=== PATIENT | male | born 1955 | race Caucasian/White ===

== ENCOUNTER 2021-09-13 09:48 | Day surgery (SDC) | payer MEDICARE ==
[~2021-09-13 09:48] MED LIST: ASPIRIN 325 MG TAB PO PRN; SODIUM CHLORIDE 0.9% 1,000 ML in EMPTY BAG 1 BAG IV ONE
[2021-09-13 11:20] LABS: African American GFR (CKD) >90 (>60 ml/min/1.73 sqM); Anion Gap 10 mmol/L; Blood Urea Nitrogen 16 mg/dL (9-20); Calcium 8.6 mg/dL (8.4-10.2); Carbon Dioxide 25 mmol/L (22-30); Chloride 108 mmol/L (98-107); Glucose 105 mg/dL (74-99); Non-African American GFR(CKD) 84 (>60 ml/min/1.73 sqM); Potassium 3.9 mmol/L (3.5-5.1); Sodium 143 mmol/L (137-145)
[2021-09-13 11:42] LABS: Basophils # (A) 0.1 k/uL (0-0.2); Basophils % (A) 1 %; Eosinophils # (A) 0.2 k/uL (0-0.7); Eosinophils % (A) 3 %; HCT 46.7 % (39.0-53.0); HGB 15.8 gm/dL (13.0-17.5); Lymphocytes # (A) 2.2 k/uL (1.0-4.8); Lymphocytes % (A) 33 %; MCH 35.6 pg (25.0-35.0); MCHC 33.8 g/dL (31.0-37.0); MCV 105.3 fL (80.0-100.0); Macrocytosis Slight; Mean Platelet Volume 7.5; Monocytes # (A) 0.4 k/uL (0-1.0); Monocytes % (A) 6 %; Neutrophils # (A) 3.7 k/uL (1.3-7.7); Neutrophils % (A) 55 %; Platelet Count 230 k/uL (150-450); RBC 4.43 m/uL (4.30-5.90); WBC 6.6 k/uL (3.8-10.6)
[2021-09-13] MEDS ORDERED: SODIUM CHLORIDE 0.9% 500 ML 500 ML with niCARdipine 6.25 MG, NITROGLYCERIN-D5W PMX 0.05... IV ONE ×4 (12:00)
[2021-09-13] MEDS ORDERED: MIDAZOLAM 2 MG/2 ML VIAL IV ONE (12:09)
[2021-09-13] MEDS ORDERED: LIDOCAINE 1% INJ 10MG/ML (30 ML VIAL-PF) SQ ONE (12:11)
[2021-09-13] MEDS ORDERED: HEPARIN SODIUM 1,000 UN/ML (10ML VL) ONE (12:13)
[2021-09-13] MEDS: HEPARIN SODIUM 1,000 UN/ML (10ML VL) IV ONE ×2 (12:14→12:39)
[2021-09-13] MEDS ORDERED: niCARdipine 25 MG/10 ML VIAL ONE (12:39)
[2021-09-13] MEDS ORDERED: HYDROmorphone 1 MG/ML 1 ML SYRINGE IVP ONE (12:47)
[2021-09-13] MEDS ORDERED: NITROGLYCERIN 1000MCG/10ML SYRINGE INTRAARTER ONE (13:10)
[2021-09-13] MEDS: niCARdipine Syringe (1,000 mcg/10 mL) INTRAARTER ONE ×2 (13:11→13:22)
[2021-09-13] MEDS ORDERED: CLOPIDOGREL 75 MG TAB ONE (13:16)
[2021-09-13] MEDS ORDERED: CLOPIDOGREL 75 MG TAB PO ONE (13:18)
[2021-09-13] MEDS ORDERED: IOPAMIDOL-250 100ML BTL INTRAARTER ONE (13:34)
[2021-09-13] MEDS ORDERED: NALOXONE 0.4 MG/ML 1 ML VIAL IVP PRN (13:35)
--- NOTE | 2021-09-13 13:38 | P.PCN ---
Date of Procedure: 09/13/21 Operative Findings: PERCUTANEOUS PERIPHERAL INTERVENTION Performing physician Noe Rahman M.D. Procedure performed #1 atherectomy of the left SFA using the orbital atherectomy device #2 intravascular ultrasound of the left SFA #3 successful stenting of the left SFA #4 left lower extremity angiogram #5 intravascular ultrasound of the right external iliac artery #6 selective right common femoral artery angiogram Indication Limiting intermittent claudication in this 66-year-old gentleman who is known to have lower peripheral arterial disease confirmed by angiogram recently Approach Right common femoral artery Complications None Level of sedation Moderate with a sedation time of 82 minutes Procedure description After obtaining an informed consent the patient was brought to the cardiac laborer wrecking and salvaging. The right common femoral artery was cannulated using puncture technique under ultrasound guidance, the micropuncture wire passed easily and subsequently I placed a 6-Uzbek 55 cm sheath in the right common femoral artery. Subsequently I did selective left profunda using an 035 stiff Glidewire with a backup support of rim catheter. Subsequently the sheath was advanced over the wire and the catheter to the left common femoral artery. Anticoagulation was initiated using heparin with continuous ACT monitoring. Left lower eccentric angiogram was performed and revealed occluded left SFA from the ostium all the way to the Jesus canal with 3 vessel run off below the knee on the left side Crossing the CT of the left SFA was performed using 018 wire with a backup support of 018 catheter. Subsequently I approve that I was in the true lumen by injecting contrast through the catheter in the left popliteal. After that I did intravascular ultrasound which showed that I was in the true lumen and then I did atherectomy using the CSI device. Balloon angioplasty after that was performed using 5 mm choppered balloon. The following angiogram showed inadequate angiographic results and for that reason I placed 3 stents in the left SFA. Distally I placed 6.0 x 1 40 mm and in the mid I placed a 7.0 x 1 40 mm and in the very proximal I placed 7.0 x 40 mm. All these stents where zilver PTX stents. Postdilatation was performed using 6 mm balloon. The final angiogram showed good angiographic results. For the lesion in the left external iliac artery I did intravascular ultrasound which showed an area stenosis of only 55% and for that reason I did not stent the lesion. After that I did exchange my long sheath into short sheath using 035 stiff Glidewire and then I did selective right common femoral artery angiogram The procedure was completed without any complications Postprocedure management #1 dual antiplatelet therapy #2 aggressive cholesterol control #3 risk factors modification #4 follow-up with the patient
[2021-09-13] MEDS: SODIUM CHLORIDE 0.9% 1,000 ML in EMPTY BAG 1 BAG IV SCH ×2 (17:52→23:57)
[2021-09-13] MEDS ORDERED: HYDROmorphone 0.5 MG/0.5 ML SYRINGE IVP PRN (20:49)
[2021-09-14 05:57] VITALS: BP 133/74; PULSE 75; RESP 17; TEMP 98.3
--- NOTE | 2021-09-14 06:26 | IR ---
EXAMINATION TYPE: IR stent intravas non coronary DATE OF EXAM: 09/13/2021 CLINICAL HISTORY: Peripheral arterial disease. TECHNIQUE: Fluoroscopy. COMPARISON: None. FINDINGS: Fluoroscopic guidance was provided during pelvic and proximal lower extremity angiogram wi stent insertion procedure performed by Dr. Rahman. A total of 22.6 minutes of fluoroscopic time was utilized during the procedure and 653 spot images was acquired. Please refer to procedure note for f urther details as I was not present or performed procedure. IMPRESSION: As Above.
--- NOTE | 2021-09-14 08:11 | P.DS ---
Providers Attending physician: Noe Rahman Primary care physician: [facility] Hospital Course: The patient is a 66-year-old gentleman who underwent yesterday successful opening occluded left SFA. The procedure was performed from the right groin. The right groin is soft and nontender and without any bruises. On examination he does have great dorsalis pedis pulse. The patient is going to be discharged on dual anti-platelet therapy and high intensity statin and I'll follow-up with the patient in a week in the office Plan - Discharge Summary Discharge Rx Participant: Yes New Discharge Prescriptions: New Clopidogrel Bisulfate [Plavix] 75 mg PO DAILY #90 tab Continue Prevagen 1 tab PO DAILY Atorvastatin [Lipitor] 80 ng PO QAM Aspirin [Adult Low Dose Aspirin EC] 81 mg PO QAM Discharge Medication List Aspirin [Adult Low Dose Aspirin EC] 81 mg PO QAM 09/12/21 [History] Atorvastatin [Lipitor] 80 ng PO QAM 09/12/21 [History] Prevagen 1 tab PO DAILY 09/12/21 [History] Clopidogrel Bisulfate [Plavix] 75 mg PO DAILY #90 tab 09/14/21 [Rx] Follow up Appointment(s)/Referral(s): Noe Rahman MD [STAFF PHYSICIAN] - 1 Week Activity/Diet/Wound Care/Special Instructions: Dr. Rahman office will call you with appt. date/time.
[2021-09-14] MEDS ORDERED: CLOPIDOGREL 75 MG TAB PO SCH (09:00)
[2021-09-14] MEDS ORDERED: ATORVASTATIN 80 MG TAB PO SCH (09:00)
[2021-09-14] MEDS ORDERED: ASPIRIN 81 MG PO SCH (09:00)
--- NOTE | 2021-09-18 07:15 | CDI ---
Documentation Clarification Form Date: 09/18/2021 06:57:40 AM From: Isatu Noriega Phone: Admit Date: 09/13/2021 09:48:00 AM Patient Name: Rashad Lancaster Visit Number: [id number] Discharge Date: Payor: MEDICARE HMO Dear Dr. Rahman. Please provide clarification as to the cause of the occlusive PA. PAD/PVD is considered unspecified. Greatest specificity is required for medical necessity support. I underlying cause of the occlusive PAD one of the following? Arteriosclerotic disease of the arteries Arteritis Necrotic Due to embolism/thrombosis Other-please specify below Thank you for your kind consideration. MTDD
--- NOTE | 2021-09-27 06:17 | CDI ---
[facility] [address] [place] [address] Date: 09/27/2021 06:14:56 AM From: Isatu Noriega Phone: Admit Date: 09/13/2021 09:48:00 AM Patient Name: Rashad Lancaster Visit Number: [id number] Discharge Date: Payor: MEDICARE HMO Dear Dr. Rahman Please provide clarification as to the cause of the occlusive PAD. PAD/PVD is considered unspecified. Greatest specificity is required for medical necessity support. Is underlying cause of the occlusive PAD one of the following? Arteriosclerotic disease of the arteries Arteritis Necrotic Due to embolism/thrombosis Other-please specify below Thank you for your kind consideration. MTDD
--- NOTE | 2021-10-11 07:28 | CDI ---
Documentation Clarification Form Date: 10/11/2021 07:25:04 AM From: Isatu Noriega Phone: Admit Date: 09/13/2021 09:48:00 AM Patient Name: Rashad Lancaster Visit Number: [id number] (Third Request) Discharge Date: Payor: MEDICARE HMO Dear Dr. Rahman, Please provide clarification as to the cause of the occlusive PAD. PAD/PVD is considered unspecified. Greatest specificity is required for medical necessity support. Is underlying cause of the occlusive PAD one of the following? Arteriosclerotic disease of the arteries Arteritis Necrotic Due to embolism/thrombosis Other-please specify below Thank you for your kind consideration. MTDD
== END 2021-09-14 09:46 | disposition home or self-care (01) ==
LOC: CATHCVL 09:48 → 3SCARD 13:31 → CATHCVL 09-14 09:46
PROVIDERS: ATTEND Internal Medicine Interventional Cardiology
DX: I70.213 Atherosclerosis of native arteries of extremities with intermittent claudication, bilateral legs (principal); I65.23 Occlusion and stenosis of bilateral carotid arteries; E78.5 Hyperlipidemia, unspecified; Z20.822 Contact with and (suspected) exposure to COVID-19; F17.210 Nicotine dependence, cigarettes, uncomplicated; Z79.82 Long term (current) use of aspirin; Z79.899 Other long term (current) drug therapy
CPT/HCPCS: 37227; 37252; 37253; 80048; 85025; 87635; C1894 ×2; C1769 ×6; C1714; C1725 ×2; C1753; C2623; C1874 ×2; J2250; J2001; J1644; J1170 ×2; Q9966